=== PATIENT | female | born 1955 | race Caucasian/White ===

== ENCOUNTER 2016-09-04 17:12 | Emergency (ER) | payer BC ==
--- NOTE | 2016-09-04 17:14 | PDOC ---
History of Present Illness - General History Source: Patient Exam Limitations: No Limitations - History of Present Illness Initial Comments: 09/04/16 17:59 The patient is a 61 year old female, with significant past medical history of diverticulitis, who presents today complaining of bilateral foot injuries s/p mechanical fall this afternoon. The patient was bringing groceries into her house when she tripped and fell forward on the steps. The right ankle is tender with some pain radiating to the back of her calf. The top of her left foot is also tender. The patient wanted to be sure that she did not break anything before the expected snow storm tomorrow. Denies head trauma or any other trauma. Denies fever, chills. Allergies: latex <Jeannine Delgado - Last Filed: 09/04/16 17:59> <Caroline Marmolejo - Last Filed: 09/04/16 21:13> - General Chief Complaint: Injury Stated Complaint: BOTH ANKLE RT CALF PAIN Time Seen by Provider: 09/04/16 17:14 Past History <Jeannine Delgado - Last Filed: 09/04/16 17:59> - Past Medical History Anemia: No Asthma: No Cancer: No Cardiac Disorders: No CVA: No COPD: No CHF: No Dementia: No Diabetes: No GI Disorders: Yes (HX OF DIVERTICULITIS) Disorders: No HTN: Yes Hypercholesterolemia: No Liver Disease: Yes (FATTY LIVER) Seizures: No Thyroid Disease: No - Surgical History Abdominal Surgery: No Appendectomy: No Cardiac Surgery: No Cholecystectomy: No Lung Surgery: No Neurologic Surgery: No Orthopedic Surgery: No - Psycho/Social/Smoking Cessation Hx Suicidal Ideation: No Smoking Status: No Smoking History: Never smoked Have you smoked in the past 12 months: No Number of Cigarettes Smoked Daily: 0 Hx Alcohol Use: Yes (VERY RARE) Drug/Substance Use Hx: No Substance Use Type: Alcohol Hx Substance Use Treatment: No <Caroline Marmolejo - Last Filed: 09/04/16 21:13> - Past Medical History Allergies/Adverse Reactions: Allergies Allergy/AdvReac Type Severity Reaction Status Date / Time latex Allergy Mild Rash Verified 03/15/14 12:40 No Known Drug Allergies Allergy Verified 05/17/13 03:11 ENVIRONMENTAL Allergy Mild NASAL Uncoded 03/15/14 12:40 CONGESTION Home Medications: Ambulatory Orders Bimatoprost [Lumigan] 7.5 ml OU HS 05/16/13 Timolol [Betimol] 0.5 dropper OU DAILY 05/16/13 Olmesartan Medoxomil [Benicar -] 20 mg PO DAILY 12/01/13 Anastrozole [Arimidex -] 1 mg PO DAILY 09/04/16 Review of Systems - Review of Systems Able to Perform ROS?: Yes Comments:: 09/04/16 17:59 GENERAL/CONSTITUTIONAL: No fever or chills. No weakness. HEAD, EYES, EARS, NOSE AND THROAT: No change in vision. No ear pain or discharge. No sore throat. CARDIOVASCULAR: No chest pain or shortness of breath. RESPIRATORY: No cough, wheezing, or hemoptysis. GASTROINTESTINAL: No nausea, vomiting, diarrhea or constipation. GENITOURINARY: No dysuria, frequency, or change in urination. MUSCULOSKELETAL: Yes: right ankle pain, right calf pain, left foot pain. No joint or muscle swelling or pain. No neck or back pain. SKIN: No rash NEUROLOGIC: No headache, vertigo, loss of consciousness, or change in strength/ sensation. ENDOCRINE: No increased thirst. No abnormal weight change. HEMATOLOGIC/LYMPHATIC: No anemia, easy bleeding, or history of blood clots. ALLERGIC/IMMUNOLOGIC: No hives or skin allergy. <Jeannine Delgado - Last Filed: 09/04/16 17:59> *Physical Exam - Vital Signs Last Vital Signs Temp Pulse Resp BP Pulse Ox 97.3 F L 96 H 17 143/74 99 09/04/16 17:13 09/04/16 17:13 09/04/16 17:13 09/04/16 17:13 09/04/16 17:13 - Physical Exam Comments: 09/04/16 18:00 GENERAL: Awake, alert, and fully oriented, in no acute distress HEAD: No signs of trauma EYES: PERRLA, EOMI, sclera anicteric, conjunctiva clear ENT: Auricles normal inspection, hearing grossly normal, nares patent, oropharynx clear without exudates. Moist mucosa NECK: Normal ROM, supple, no lymphadenopathy, JVD, or masses LUNGS: Breath sounds equal, clear to auscultation bilaterally. No wheezes, and no crackles HEART: Regular rate and rhythm, normal S1 and S2, no murmurs, rubs or gallops ABDOMEN: Soft, nontender, normoactive bowel sounds. No guarding, no rebound. No masses EXTREMITIES: Normal range of motion, no edema. No clubbing or cyanosis. No cords, erythema, or tenderness NEUROLOGICAL: Cranial nerves II through XII grossly intact. Normal speech, normal gait SKIN: Warm, Dry, normal turgor, no rashes or lesions noted. <Jeannine Delgado - Last Filed: 09/04/16 17:59> Medical Decision Making - Medical Decision Making No bony tenderness, no indication for imaging at this time. <Caroline Marmolejo - Last Filed: 09/04/16 21:13> *DC/Admit/Observation/Transfer - Attestations Scribe Attestion: 09/04/16 18:00 Documentation prepared by SALBADOR Thompson, acting as medical screener for Caroline Marmolejo MD. <Jeannine Delgado - Last Filed: 09/04/16 17:59> - Discharge Dispostion Admit: No <Caroline Marmolejo - Last Filed: 09/04/16 21:13> Diagnosis at time of Disposition: Muscle strain - Discharge Dispostion Disposition: HOME Condition at time of disposition: Stable - Patient Instructions Printed Discharge Instructions: DI for Muscle Strain
[2016-09-04 17:41] VITALS: BP 143/74; PULSE 96; TEMP 97.3; BMI 36.6
== END 2016-09-04 17:36 | disposition home or self-care (01) ==
LOC: FER 17:12
DX: T14.8 Other injury of unspecified body region (principal); W10.9XXA Fall (on) (from) unspecified stairs and steps, initial encounter; Y93.89 Activity, other specified; Y92.008 Other place in unspecified non-institutional (private) residence as the place of occurrence of the external cause; I10 Essential (primary) hypertension; K76.0 Fatty (change of) liver, not elsewhere classified
CPT/HCPCS: 99282-25

== ENCOUNTER 2023-02-14 05:19 | Day surgery (SDC) | payer OTHER, BC ==
[2023-02-13 11:49] VITALS: BMI 41.1
[2023-02-14 12:42] VITALS: TEMP 97
[2023-02-14 13:06] VITALS: PULSE 76
[2023-02-14 13:07] VITALS: BP 151/69; RESP 15
== END 2023-02-14 13:35 | disposition home or self-care (01) ==
LOC: JASU-ENDO 05:19
PROVIDERS: ATTEND Internal Medicine Gastroenterology
PROC: 0DBN8ZX Excision of Sigmoid Colon, Via Natural or Artificial Opening Endoscopic, Diagnostic (ICD-10-PCS; 2023-02-14)
PROC: 0DBL8ZX Excision of Transverse Colon, Via Natural or Artificial Opening Endoscopic, Diagnostic (ICD-10-PCS; 2023-02-14)
PROC: 0DBP8ZX Excision of Rectum, Via Natural or Artificial Opening Endoscopic, Diagnostic (ICD-10-PCS; principal; 2023-02-14 12:30)
DX: D12.3 Benign neoplasm of transverse colon (principal); D12.8 Benign neoplasm of rectum; K52.9 Noninfective gastroenteritis and colitis, unspecified; K57.30 Diverticulosis of large intestine without perforation or abscess without bleeding; Z86.010 Personal history of colon polyps
CPT/HCPCS: 88305-TC; 88341-TC; 88342-TC

== ENCOUNTER 2024-05-09 21:26 | Emergency (ER) | payer OTHER, BC ==
[2024-05-09 21:45] VITALS: BP 159/85; PULSE 85; RESP 18; TEMP 98.1; BMI 40.6
[2024-05-09] MEDS ORDERED: CLINDAMYCIN HCL 150 MG CAPSULE (FP) ONE (21:47)
[2024-05-09] MEDS: CLINDAMYCIN HCL 150 MG CAPSULE (FP) PO ONE (21:50)
[2024-05-09] MEDS ORDERED: DALBAVANCIN HCL 500 MG VIAL (RESTRICTED TO ID ONLY) IVPB ONE (22:48)
[2024-05-09] MEDS: DALBAVANCIN HCL 1,500 MG in DEXTROSE 5%-WATER - 500 ML IVPB ONE (23:00)
== END 2024-05-09 23:47 | disposition home or self-care (01) ==
LOC: FER 21:26
DX: L03.116 Cellulitis of left lower limb (principal)
CPT/HCPCS: 73590-TC-LT-FY; 99284-25; J0875